=== PATIENT | male | born 1940 | race Caucasian/White ===

== ENCOUNTER → 2024-03-04 10:51 | Outpatient (REF) | payer MEDICARE, OTHER, SELFPAY | LOC: HWRAD 10:51 | PROVIDERS: ATTENDING PHYSICIAN Surgery; FAMILY PHYSICIAN Internal Medicine | DX: T85.79XA Infection and inflammatory reaction due to other internal prosthetic devices, implants and grafts, initial encounter (principal) | CPT/HCPCS: 74177; Q9967 ==

== ENCOUNTER 2025-04-15 20:20 | Emergency (ER) | payer MEDICARE, OTHER, SELFPAY ==
[2025-04-15 20:21] VITALS: BP 172/87
[2025-04-15 20:24] VITALS: BP 172/87
--- NOTE | 2025-04-15 20:33 | ED.GENMED ---
History of Present Illness
General
Chief Complaint: Nose Bleed
Time Seen by Provider: 04/15/25 20:21
History of Present Illness
History of Present Illness:
84-year-old male presents to the emergency department for evaluation of left nose bleeding that began while eating dinner earlier tonight. Does not take blood thinners.
Review of Systems
Review of Systems
Allergies reviewed?: Yes
All Other Systems: ROS reviewed and negative except as documented in HPI and ROS
Phy Exam
Physical Exam
Physical Exam:
GEN: Well appearing, NAD, WDWN
HEENT: Oral mucosa moist, no scleral icterus. Evidence of prior bleeding from a prominent vessel on the left Kiesselbach's plexus, no posterior epistaxis noted
Cardiac: Regular rate
Lung: No respiratory distress, no tachypnea
MSK: No gross deformity or injuries
Skin: Good color, no pallor or jaundice, no rashes
Neuro: AO x3, moves all extremities freely
Psych: Calm, cooperative
Course
Orders/Labs/Results
Orders:
Orders
04/15/25 22:31
Carbidopa/Levodopa [Sinemet 25-100] 1 tablet PO NOW STA
04/15/25 22:35
Pramipexole [Mirapex] 0.25 mg PO NOW STA
Vital Signs
Initial and Last Documented VS:
Initial Vital Signs
Temp Pulse Resp BP Pulse Ox
98.1 F 63 20 172/87 97
04/15/25 20:21 04/15/25 20:21 04/15/25 20:21 04/15/25 20:21 04/15/25 20:21
Last Documented Vital Signs
Temp Pulse Resp BP Pulse Ox
98.1 F 62 18 169/75 98
04/15/25 20:21 04/15/25 22:02 04/15/25 22:02 04/15/25 22:00 04/15/25 22:15
Procedures
Nosebleed
Drug treatment: Lidocaine and Epinephrine
Treatment: Silver nitrate cautery
Post treatment bleeding: still some oozing (Hemostasis achieved after repeat cautery)
MDM/Problems Addressed
MDM/Problems Addressed:
Nose was cauterized x 2 with good hemostasis after second bout. Recommend outpatient ENT follow-up and topical Neosporin twice daily for 1 week
*Pulse Oximetry
SaO2: 97
Oxygen Mode of Delivery: Room air
Patient hypoxic: no
*Critical Care Note
Total Time (30-74mins, 75-104mins- exclusive of procedures): Not Applicable
ED Attending Note
-
Portions of this chart may have been created with voice recognition software.� Occasional wrong word or��sound alike� substitutions may have occurred due to the inherent limitations of voice recognition software.
Discharge Plan
Departure
Patient Disposition: Home (Routine Discharge)
Date of Disposition: 04/15/25
Time of Disposition: 23:06
Patient with high blood pressure during this ER visit?: No
Discharge Problem:
Acute anterior epistaxis
Instructions: Nosebleeds (DC)
Prescriptions:
No Action
multivitamin Tablet
1 tab PO DAILY
omeprazole 40 mg Capsule,Delayed Release(Dr/Ec)
40 mg PO DAILY
tramadol 50 mg Tablet
50 mg PO HS
meloxicam 7.5 mg Tablet
7.5 mg PO DAILY
simvastatin 20 mg Tablet
20 mg PO DAILY
carbidopa-levodopa [Sinemet] 25-100 mg Tablet
1 tab PO TID
valsartan 160 mg Tablet
160 mg PO DAILY
coenzyme Q10 [Co Q-10] 100 mg Capsule
100 mg PO DAILY
metoprolol tartrate 25 mg Tablet
12.5 mg PO BID
Referrals:
Glen Mccormick DO [Active, ENT]
Shruti Poole DO [Family Provider, Internal Medicine]
Activity Restrictions/Additional Instructions:
Neosporin twice daily for 7 days to left nostril
Interventions
Interventions:
*Risk Screen - Suicide Last Done: 04/15/25 20:21
*General Assessment Last Done: 04/15/25 20:21
*Neglect/Abuse Screening Last Done: 04/15/25 20:21
*ED- Fall Risk Assessment Last Done: 04/15/25 20:21
*ED COVID-19 Vaccine History Last Done: 04/15/25 20:21
*ED Influenza Vaccine History Last Done: 04/15/25 20:21
ED-EENT Assessment Last Done: 04/15/25 21:54
Discharge Date and Time
Print Language: DOMINICAN
[2025-04-15 21:00] VITALS: BP 161/78
[2025-04-15 22:00] VITALS: BP 169/75
[2025-04-15] MEDS: SINEMET 25-100 1 TABLET PO (22:44)
[2025-04-15] MEDS: MIRAPEX 0.25 MG PO (22:44)
== END 2025-04-15 23:17 | disposition home or self-care (01) ==
LOC: EMR 20:20
PROVIDERS: EMERGENCY PHYSICIAN Student in an Organized Health Care Education/Training Program; FAMILY PHYSICIAN Internal Medicine
DX: R04.0 Epistaxis (principal)
CPT/HCPCS: 99283; 30901